=== PATIENT | male | born 1970 | race Caucasian/White ===

== ENCOUNTER 2016-03-01 17:10 | Emergency (ER) | payer BC, OTHER ==
[~2016-03-01] VITALS: Ht 188 cm; Wt 131.0 kg
[~2016-03-01 17:10] MED LIST: ASPI-113 PO; ATOR-54 PO; FLEC100T21 PO; LISI-461 PO; LPR25 PO; METO25TA3 PO; PENI250T2 PO; PRLSR20 PO; vitamin B-6 PO
[2016-03-01 17:16] VITALS: TEMP 36.9; Ht 188 cm; Wt 131.0 kg
[2016-03-01] MEDS ORDERED: METO25TA3 PO (17:47)
[2016-03-01] MEDS ORDERED: METO50TA7 PO (17:47)
[2016-03-01] MEDS ORDERED: OMEP20CA59 PO (17:47)
[2016-03-01] MEDS ORDERED: ASPCH81X PO (17:47)
[2016-03-01] MEDS ORDERED: ZINC50TA3 PO (17:47)
[2016-03-01] MEDS ORDERED: LOSA50TA54 PO (17:47)
[2016-03-01] MEDS ORDERED: DIPHTHERIA/TETANUS/PERTUSSIS 0.5 ML SYR/VIAL IM. ONE (18:15)
--- NOTE | 2016-03-01 18:54 | EMERGENCY ROOM VISIT NOTE ---
History First contact with patient: 17:21 Chief Complaint: OTHER COMPLAINT Stated Complaint: VERIOCUSE VEIN BLEEDING History of Present Illness The patient is a 45 year old male who presents to the Emergency Room via private vehicle with complaints of "varicose vein bleeding". The patient states that he has a history of varicose veins as well as surgical repair and removal of his varicose veins. He states that this past weekend the varicose veins on his left anterior hairston began to puff up and then become scabbed. He states that he was at work today when his sock rubbed over the area and created bleeding. He states that at home the bleeding has stopped but when he removed the sock did remove the scab causing further bleeding. He is placed gauze and a T-shirt on this but continues to bleed. He believes he lost a moderate amount of blood. He denies any numbness or tingling in the leg, he denies any fevers or chills. His tetanus is NOT up-to-date. He does take aspirin but no anticoagulants. Review of Systems A complete 6-point Review of Systems was discussed with the patient, with pertinent positives and negatives listed in the History of Present Illness. All remaining Review of Systems questions can be considered negative unless otherwise specified. Past Medical/Surgical History Medical Problems: (1) s/p appendectomy (2) Fausto's disease Family History Diabetes, heart disease, blood pressure, cancer, colon disease, kidney disease or stones. Social History Smoking Status: Never Smoker Alcohol Use: none Drug Use: none Marital Status: Occupation Status: employed Current/Historical Medications Scheduled Aspirin (Aspirin Chewable), 81 MG PO QAM Atorvastatin (Lipitor), 20 MG PO QPM Losartan Potassium (Cozaar), 50 MG PO QAM Metoprolol Succ (Toprol Xl) (Toprol-Xl), 50 MG PO QAM Metoprolol Succinate (Toprol Xl), 25 MG PO QPM Omeprazole (Prilosec), 20 MG PO QPM Zinc (Zinc), 50 MG PO BID Allergies Coded Allergies: Lisinopril (Verified Adverse Reaction, Mild, cough, 03/01/16) Physical Exam Vital Signs Date Time Temp Pulse Resp B/P Pulse Ox O2 Delivery O2 Flow Rate FiO2 03/01/16 19:02 75 152/72 94 Room Air 03/01/16 17:16 36.9 84 18 136/86 97 Room Air Physical Exam VITAL SIGNS - Vital signs and nursing notes were reviewed. Patient is afebrile , normotensive, not tachycardic and is saturating well on room air at 97%. GENERAL -45-year-old male appearing his stated age who is in no acute distress. Communicates well with provider and answers questions appropriately. SKIN - Without rashes. There is evidence of varicose veins in the left anterior hairston with evidence of break in the integument with active bleeding. The region of which the blood is pouring from his less than 3 mm. The surrounding region is nontender. HEAD - NC/AT. EXTREMITIES - No clubbing or peripheral cyanosis. No pretibial edema present. Patient is vascularly intact in the left lower extremity. +5/5 strength noted in UE/LE bilaterally. Medical Decision & Procedures Medications Administered Medications (Trade) Dose Ordered Sig/Felicia Route Start Time Stop Time Status Last Admin Dose Admin Diphtheria/ Pertussis/Tetanus Vacc (Adacel Inj) 0.5 ml ONCE ONCE IM. 03/01/16 18:15 03/01/16 18:16 DC 03/01/16 18:36 0.5 ML Medical Decision Patient was seen and evaluated as above. After obtaining a thorough history and physical examination it was evident the patient had a slight break in the skin which led to a break in the varicose vein and active bleeding. A quick clot hemostatic pad was applied to the area after thorough cleansing. This was then secured in place with an John wrap. He was observed for greater than 15 minutes and no bleeding was evident through the material. He was instructed upon outpatient management. Benefits versus risk of using this versus suturing were discussed and it was decided to try the quick clot. Patient is to leave this on for 48 hours and then remove and was instructed upon how to do so. He was educated upon worrisome symptoms which to return, had questions answered prior to discharge and was discharged home in good condition. He was given crutches and instructed on use to keep weight off of the leg to decrease pressure on the vein. He is to follow-up with his family doctor in the near future for potential referral to a pain specialist. Patient states this has happened before and he had to have a surgery to remove the vein. He was given his tetanus immunization here. In evaluation treatment this patient the following differential diagnoses were entertained: Bleeding varicose vein. Impression Primary Impression: Bleeding from varicose veins of left lower extremity Departure Information Dispostion Home / Self-Care Condition GOOD Referrals Aretha Serrano M.D. (PCP) Patient Instructions My [facility] Additional Instructions You were seen in the emergency department for bleeding from your left lower leg varicose vein. We have applied a quick clot pad to this area. Please leave this on as well as the John wrap for the next 48 hours. At that point you may remove the John wrap and use a warm washcloth to moisten the quick clot pad. Then you may gently poor warm water on the area and then remove and discard the quick clot pad. If the bleeding would persist at that point these return to the emergency department. Please call your family doctor to schedule follow-up today's visit as soon as possible as well as establish potential referral to a vein specialist. If this region would start to bleed again please return to emergency department for further evaluation. If you begin bleeding from her gums, eyes, nose, rectum or any easy bruising or bleeding please return to the emergency department. Please use the crutches to keep the weight off the leg until the bandage is removed as well as keep the leg elevated as much as possible. Please return to the emergency department with any new/concerning symptoms.
[2016-03-01 19:02] VITALS: BP 152/72; PULSE 75; O2SAT 94
== END 2016-03-01 19:11 | disposition home or self-care (01) ==
LOC: C.EDB 17:12 → C.EDD 19:11
DX: I83.892 Varicose veins of left lower extremity with other complications (principal); E83.01 Wilson's disease; Z79.82 Long term (current) use of aspirin; Z79.899 Other long term (current) drug therapy

== ENCOUNTER 2016-08-17 16:59 | Emergency (ER) | payer OTHER ==
[~2016-08-17] VITALS: Ht 188 cm; Wt 133.0 kg
[~2016-08-17 16:59] MED LIST changes: +ASPCH81X PO; -ASPI-113 PO; -FLEC100T21 PO; -LISI-461 PO; +LOSA50TA54 PO; -LPR25 PO; +METO50TA7 PO; +OMEP20CA59 PO; -PENI250T2 PO; -PRLSR20 PO; +ZINC50TA3 PO; -vitamin B-6 PO
[2016-08-17 17:01] VITALS: TEMP 37.4; Ht 188 cm; Wt 133.0 kg
--- NOTE | 2016-08-17 17:45 | EMERGENCY ROOM VISIT NOTE ---
History Report prepared by Birgit: Daniel English Under the Supervision of: Dr. Darshan Vivar M.D. First contact with patient: 17:19 Chief Complaint: CHEST PAIN Stated Complaint: CHEST PAIN, HX OF A-FIB Nursing Triage Summary: Patient ambulatory to triage with a steady and upright gait, states "I have chest pain. It's probably the same thing that it always is. 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 They told me to come here." Pain "moves" but is mainly left side of sternum. With deep breaths the pain is below the nipple. Sometimes with exertion, the chest just "hurts". Pain started Sunday. Patient walks daily for exercise. History of Present Illness The patient is a 46 year old male with a history of atrial fibrillation, sarcoidosis, Fausto's disease, hyperlipidemia, and hypertension who presents to the Emergency Room with complaints of intermittent left-sided chest pain that started 3 days ago. He says that the pain comes on randomly and sometimes jumps around his chest. The patient says that he has been taking Ibuprofen 600 mg 3 times per day, and with the ibuprofen, his pain is roughly a 2 out of 10 in severity. However, he notes that he missed a dose last night, and the pain became a 4 or 5 out of 10. The patient adds that nothing (except ibuprofen) makes the pain better or worse. He says that he currently has a bit of left- sided chest pain. The patient says that the pain occasionally radiates to his back and left shoulder. He states that he knows when his atrial fibrillation is coming on, and this recent pain is not related to his atrial fibrillation. The patient denies feelings of a rapid heartbeat or skipping beat. He says he has had this pain in the past, and usually makes an appointment with cardiology. The patient adds that one time it was pericarditis, and the other times, there was no major finding. He says that he had an ablation 4 years ago. The patient denies any fevers, cough, or leg pain or swelling. He has no history of blood clots, and he does not take a blood thinner for his atrial fibrillation. The patient says that he takes metoprolol. Source of History: patient Onset: 3 days ago Position: chest (left) Symptom Intensity: ranges from 2/10 to 5/10 Quality: other (pain) Timing: intermittent Modifying Factors (Relieving): ibuprofen Associated Symptoms: + back pain, No fevers, No cough Note: Associated symptoms: Left shoulder pain intermittently. Denies feeling of rapid heartbeat or skipping beat, denies leg pain or swelling. Review of Systems See HPI for pertinent positives & negatives. A total of 10 systems reviewed and were otherwise negative. Past Medical & Surgical Medical Problems: (1) s/p appendectomy (2) Fausto's disease Old medical records were reviewed. Nurse's notes were reviewed and I agree with. Family History Diabetes mellitus FH: heart disease FHx: cancer FHx: gallbladder disease Hypertension Kidney disease Seizures Social History Smoking Status: Never Smoker Alcohol Use: none Drug Use: none Marital Status: Occupation Status: employed Current/Historical Medications Scheduled Aspirin (Aspirin Chewable), 81 MG PO QAM Atorvastatin (Lipitor), 20 MG PO QPM Losartan Potassium (Cozaar), 50 MG PO QAM Metoprolol Succ (Toprol Xl) (Toprol-Xl), 50 MG PO QAM Metoprolol Succinate (Toprol Xl), 25 MG PO QPM Omeprazole (Prilosec), 20 MG PO QPM Zinc (Zinc), 50 MG PO QPM Allergies Coded Allergies: Lisinopril (Verified Adverse Reaction, Mild, cough, 08/17/16) Physical Exam Vital Signs Date Time Temp Pulse Resp B/P (MAP) Pulse Ox O2 Delivery O2 Flow Rate FiO2 08/17/16 19:55 55 18 134/81 97 Room Air 08/17/16 18:57 51 17 130/75 97 Room Air 08/17/16 17:01 99 Room Air 08/17/16 17:01 37.4 57 18 147/68 99 Room Air Physical Exam General: Well developed well nourished non ill appearing middle aged male in no acute distress, breathing comfortably on room air. Normal speech HEENT: Normal cephalic atraumatic. Pupils are equal round and reactive to light. Extraocular movements are intact. Oropharynx is pink with moist mucous membranes. No swelling of the mouth lips or tongue. Neck: Supple with a midline trachea. No meningeal signs or stiffness, no JVD or bruits. No Stridor. Chest: Clear to auscultation bilaterally. No wheezes or rhonchi. No increased work of breathing. Heart: regular rate and rhythm. Abdomen: Soft nontender, nondistended without rebound guarding or rigidity. Extremities: No cyanosis clubbing or edema. No calf tenderness or assymetry Spine/Back. Non tender to palpation. No CVA tenderness Skin: Good turgor without rashes. Neurologic exam: Cranial nerves two through 12 are intact. Motor and sensation are intact and symmetrical throughout. Medical Decision & Procedures ER Provider Diagnostic Interpretation: Radiology results as stated below per my review and radiologist interpretation: SINGLE VIEW CHEST CLINICAL HISTORY: Atypical chest pain. FINDINGS: An AP, portable, upright chest radiograph is compared to study dated 10/24/2011. Correlation will is made with chest CT dated 10/22/2011. The examination is degraded by portable technique and patient rotation. The heart is enlarged. The mediastinal contour is within normal limits and the pulmonary vasculature is noncongested. The lungs and pleural spaces are clear. No pneumothorax is seen. The bony thorax is grossly intact. IMPRESSION: Cardiomegaly with no acute cardiopulmonary abnormality. Electronically signed by: Tha Santizo M.D. 08/17/2016 5:56 PM Dictated Date/Time: 08/17/2016 5:[address] ANGIOGRAM OF THE CHEST CLINICAL HISTORY: Atypical chest pain. COMPARISON STUDY: Chest x-ray dated 08/17/2016. Chest CT dated 10/22/2011. TECHNIQUE: Following the IV administration of 120 cc of Optiray 320, CT angiogram of the chest was performed from the upper abdomen to the thoracic inlet utilizing the pulmonary embolus protocol. Images are reviewed in the axial, sagittal, and coronal planes. 3-D MIPS images are created and assessed. IV contrast was administered without complication. CT DOSE: 801.54 mGy.cm FINDINGS: Thyroid: Imaged portions of the thyroid gland are normal in size and attenuation. Thoracic aorta: The thoracic aorta is normal in caliber and demonstrates standard 3-vessel arch anatomy. No dissection is seen. Pulmonary vasculature: The pulmonary trunk is dilated, measuring 3.5 cm in diameter. This suggests pulmonary artery hypertension. There are no filling defects identified in main, lobar, or segmental pulmonary branches to suggest pulmonary embolus. Heart: The heart is enlarged and there is trace pericardial effusion. Lungs and pleural spaces: No lobar consolidation is identified. There are scattered foci of tree-in-bud nodularity seen in the right upper and right middle lobes. Dependent atelectasis is observed. No pleural effusion is seen. A 6 mm pulmonary nodule is identified in the left lower lobe on image #93. This has minimally increased in size from 10/22/2011. A 6 mm left upper lobe nodule is seen on image #178 is new from 2012. The trachea and central airways are clear. Mediastinum: There is no mediastinal lymphadenopathy. Chely: Clear. Axillae: There is no axillary lymphadenopathy. Upper abdomen: The liver is cirrhotic in morphology with nodularity of the surface contour. The spleen is enlarged, measuring over 17.5 cm in length. There is a small hiatal hernia. Skeletal structures: No lytic or blastic bony lesions are seen. IMPRESSION: 1. There is no evidence of pulmonary embolus in the main, lobar, or segmental pulmonary arteries. 2. Cirrhosis and splenomegaly. 3. Cardiomegaly. 4. There is no lobar consolidation or pleural effusion. 5. There are tree-in-bud airspace opacities seen in the right upper and right middle lobes. This suggests a mild infectious/inflammatory pneumonitis. Clinical correlation will be required. 6. There are 2 indeterminate 6 mm pulmonary nodules in the left lung. One of these is new from 2012 and the other appears minimally increased in size. Follow-up is recommended. See below. Please refer to below summary of Fleischner criteria recommendations for follow-up of incidental CT nodules (Ange Polanco, Guidelines for management of small pulmonary nodules detected on CT scans: A statement from the Fleischner Society, Radiology 237: [phone].) SOLID NODULES Solitary nodule size: <6 mm * low risk patients: no follow-up needed * high risk patients: optional CT at 12 months Solitary nodule size: 6-8 mm * low risk patients: follow-up at 6-12 months, then consider further follow-up at 18-24 months * high risk patients: initial follow-up CT at 6-12 months and then at 18-24 months if no change Solitary nodule size: >8 mm * either low or high risk patients - consider follow-up CT at 3 months, and/or CT-PET, and/or biopsy Multiple nodules size: <6 mm * low risk patients: no routine follow-up * high risk patients: optional CT at 12 months Multiple nodules size: 6-8 mm * low risk patients: follow-up at 3-6 months, then consider further follow-up at 18-24 months * high risk patients: follow-up at 3-6 months, then at 18-24 months if no change Multiple nodules size: >8 mm * low risk patients: follow-up at 3-6 months, then consider further follow-up at 18-24 months * high risk patients: follow-up at 3-6 months, then at 18-24 months if no change Note: newly detected indeterminate nodule in persons 35 years of age or older. * low risk patients: minimal or absent history of smoking and/or other known risk factors * high risk patients: history of smoking or of other known risk factors (e.g. first degree relative with lung cancer, or exposure to asbestos, radon, uranium) * if a nodule up to 8 mm is partly solid or is ground glass further follow-up is required after 24 months to exclude possible slow growing adenocarcinoma (SUNG) SUBSOLID NODULES Solitary pure ground-glass nodule * nodule size <6 mm - no CT follow-up required * nodule size >=6 mm - follow-up CT at 6-12 months, then every 2 years until 5 years Solitary part-solid nodule * nodule size <6 mm - no CT follow-up required * nodule size >=6 mm - follow-up CT at 3-6 months. If unchanged, and solid component remains <6 mm, then annual follow-up for 5 years Multiple subsolid nodules * nodule size <6 mm - follow-up CT at 3-6 months, consider further follow-up at 2 and 4 years if stable * nodule size >=6 mm - follow-up CT at 3-6 months, subsequent management based on the most suspicious nodule(s) Electronically signed by: Tha Santizo M.D. 08/17/2016 7:20 PM Dictated Date/Time: 08/17/2016 7:12 PM Laboratory Results 08/17/16 17:58 Red Blood Count 4.91, Mean Corpuscular Volume 81.5, Mean Corpuscular Hemoglobin 25.7, Mean Corpuscular Hemoglobin Concent 31.5, Mean Platelet Volume 9.4, Neutrophils (%) (Auto) 57.2, Lymphocytes (%) (Auto) 26.4, Monocytes (%) (Auto) 10.5, Eosinophils (%) (Auto) 5.4, Basophils (%) (Auto) 0.3, Neutrophils # (Auto ) 3.28, Lymphocytes # (Auto) 1.51, Monocytes # (Auto) 0.60, Eosinophils # (Auto ) 0.31, Basophils # (Auto) 0.02 08/17/16 17:58 Test 08/17/16 17:58 08/17/16 18:02 White Blood Count 5.73 K/uL (4.8-10.8) Red Blood Count 4.91 M/uL (4.7-6.1) Hemoglobin 12.6 g/dL (14.0-18.0) Hematocrit 40.0 % (42-52) Mean Corpuscular Volume 81.5 fL (80-100) Mean Corpuscular Hemoglobin 25.7 pg (25-34) Mean Corpuscular Hemoglobin Concent 31.5 g/dl (32-36) Platelet Count 142 K/uL (130-400) Mean Platelet Volume 9.4 fL (7.4-10.4) Neutrophils (%) (Auto) 57.2 % Lymphocytes (%) (Auto) 26.4 % Monocytes (%) (Auto) 10.5 % Eosinophils (%) (Auto) 5.4 % Basophils (%) (Auto) 0.3 % Neutrophils # (Auto) 3.28 K/uL (1.4-6.5) Lymphocytes # (Auto) 1.51 K/uL (1.2-3.4) Monocytes # (Auto) 0.60 K/uL (0.11-0.59) Eosinophils # (Auto) 0.31 K/uL (0-0.5) Basophils # (Auto) 0.02 K/uL (0-0.2) RDW Standard Deviation 48.7 fL (36.4-46.3) RDW Coefficient of Variation 16.2 % (11.5-14.5) Immature Granulocyte % (Auto) 0.2 % Immature Granulocyte # (Auto) 0.01 K/uL (0.00-0.02) Anion Gap 6.0 mmol/L (3-11) Est Creatinine Clear Calc Drug Dose 113.9 ml/min Estimated GFR () 84.7 Estimated GFR (Non- 73.1 BUN/Creatinine Ratio 15.0 (10-20) Calcium Level 8.6 mg/dl (8.5-10.1) Total Bilirubin 1.7 mg/dl (0.2-1) Direct Bilirubin 0.4 mg/dl (0-0.2) Aspartate Amino Transf (AST/SGOT) 29 U/L (15-37) Alanine Aminotransferase (ALT/SGPT) 48 U/L (12-78) Alkaline Phosphatase 207 U/L (45-117) Total Protein 7.2 gm/dl (6.4-8.2) Albumin 3.5 gm/dl (3.4-5.0) Lipase 105 U/L (73-393) Bedside D-Dimer > 450 ng/mlFEU (0-450) Bedside Troponin I < 0.030 ng/ml (0-0.045) Laboratory studies as stated above per my review. ECG Indication: chest pain Rate (beats per minute): 56 Rhythm: sinus bradycardia Findings: no acute ischemic change, no ectopy Change: no significant change (from Jan 21 2012) ED Course 1735: Past medical records reviewed. The patient was evaluated in room A9B, and a complete history and physical examination were performed. 1906: The patient is at CT. 1935: Upon reevaluation, the patient is resting comfortably. I discussed the results and treatment plan with him. He verbalized agreement of the treatment plan. The patient was discharged home. Medical Decision Differentials include, but are not limited to; acute coronary syndrome, arrhythmia, PE, electrolyte or metabolic abnormality. Medication Reconciliation: I attest that I have personally reviewed the patient' s current medication list. Blood pressure Screening: Patient was found to have an elevated blood pressure and was referred to their primary doctor for recheck and further treatment. This patient comes in as described above. he's had left sided chest pain that's been going on for several days. It is pleuritic and her atypical for cardiac disease. He no cough or infectious type symptoms. EKG does not suggest acute coronary syndrome or arrhythmia. His troponin is not elevated. D-dimer was elevated and in light of this, we did chest CT there is no evidence of PE there are some findings that suggest possible inflammatory process. I think this is likely his sarcoidosis and clinically, he has no evidence of suggest infection. The patient has remained stable. This may be more musculoskeletal. He is going to be discharged home. He should return if: increasing pain, shortness of breath, worsening of symptoms, fever or chills, any new problems or concerns. The patient and his are happy with plan and he was discharged to home. Impression Primary Impression: Left sided chest pain Scribe Attestation The scribe's documentation has been prepared under my direction and personally reviewed by me in its entirety. I confirm that the note above accurately reflects all work, treatment, procedures, and medical decision making performed by me. Departure Information Dispostion Home / Self-Care Referrals Nader Chappell M.D.([facility]) (PCP) Forms HOME CARE DOCUMENTATION FORM, IMPORTANT VISIT INFORMATION Patient Instructions My [facility] Additional Instructions On your CT scan a new 6mm pulmonary nodule in the left lung was seen (in addition to a previous pulmonary nodule). It is recommended to follow this up in the next 3 months with repeat imaging. Please discuss this with your primary care provider. Ibuprofen(Motrin, Advil) may be used for fever or pain. Use 600mg every six hours as needed. Take with food. Avoid using more than 2400mg in a 24 hour period. Do not use 2400mg per day for more than three consecutive days without physician direction. Prolonged inappropriate use can lead to stomach upset or ulcers. (AND/OR) Rest and drink plenty of fluids as tolerated. Continue current medications. Avoid strenuous activities and anything that worsens your pain. Resume normal activities once your symptoms resolve. Return to the ER immediately for worsening or persistent chest pain, abdominal pain, vomiting, fevers, chest pains, difficulty breathing, worsening of your condition, or as needed. Follow up with your primary physician in 2-3 days for a recheck of your current condition.
--- NOTE | 2016-08-17 17:55 | EMERGENCY ROOM VISIT NOTE ---
History First contact with patient: 17:19 Chief Complaint: CHEST PAIN Stated Complaint: CHEST PAIN, HX OF A-FIB Nursing Triage Summary: Patient ambulatory to triage with a steady and upright gait, states "I have chest pain. It's probably the same thing that it always is. I wasn't able to see my family development specialist today. They told me to come here." Pain "moves" but is mainly left side of sternum. With deep breaths the pain is below the nipple. Sometimes with exertion, the chest just "hurts". Pain started Sunday. Patient walks daily for exercise. History of Present Illness The patient is a 46 year old male with a history of sarcoidosis, Fausto's disease, hypertension, hyperlipidemia, and atrial fibrillation who presents to the Emergency Room with complaints of pain. The patient states that he has had intermittent chest pain since Sunday morning over the left side of his chest. The pain is usually over the left side of his sternum moves throughout his chest , and can be located below the left breast. He also states that the pain can radiate to his back between his shoulder blades and also to his left shoulder. He states that the location of the pain often moves with breathing, movement, swallowing, or even at rest. The patient has been taking ibuprofen 600 mg for discomfort, and describes it as a 1-2 out of 10 pain. Last night he did not take ibuprofen and said it became a 4-5 out of 10 pain. The patient denies any shortness of breath but states that his pain is worsened with taking deep breaths. The patient denies any fevers, chills, abdominal pain, nausea, vomiting, constipation, diarrhea, headache, or any other acute symptoms. The patient states that he usually feels when his A. fib is coming on, but has not had any episodes since at least last week. He is currently not on any anticoagulation as he had an ablation 4 years ago but still does have acute episodes of atrial fibrillation. Review of Systems See HPI for pertinent positives and negatives. A total of ten systems were reviewed and were otherwise negative. Past Medical/Surgical History Medical Problems: (1) s/p appendectomy (2) Fausto's disease Social History Smoking Status: Never Smoker Alcohol Use: none Drug Use: none Marital Status: Occupation Status: employed Current/Historical Medications Scheduled Aspirin (Aspirin Chewable), 81 MG PO QAM Atorvastatin (Lipitor), 20 MG PO QPM Losartan Potassium (Cozaar), 50 MG PO QAM Metoprolol Succ (Toprol Xl) (Toprol-Xl), 50 MG PO QAM Metoprolol Succinate (Toprol Xl), 25 MG PO QPM Omeprazole (Prilosec), 20 MG PO QPM Zinc (Zinc), 50 MG PO QPM Allergies Coded Allergies: Lisinopril (Verified Adverse Reaction, Mild, cough, 08/17/16) Physical Exam Vital Signs Date Time Temp Pulse Resp B/P (MAP) Pulse Ox O2 Delivery O2 Flow Rate FiO2 08/17/16 18:57 51 17 130/75 97 Room Air 08/17/16 17:01 99 Room Air 08/17/16 17:01 37.4 57 18 147/68 99 Room Air Physical Exam GENERAL: Awake, alert, well-appearing, in no distress HENT: Normocephalic, atraumatic. Oropharynx unremarkable. EYES: Normal conjunctiva. Sclera non-icteric. NECK: Supple. No nuchal rigidity. RESPIRATORY: Clear to auscultation. CARDIAC: Regular rate, normal rhythm. Extremities warm and well perfused. Pulses equal. ABDOMEN: Soft, non-distended. No tenderness to palpation. No rebound or guarding. No masses. RECTAL: Deferred. MUSCULOSKELETAL: Chest examination reveals no tenderness. LOWER EXTREMITIES: Calves are equal size bilaterally and non-tender. No edema. No discoloration. NEURO: Normal sensorium. No sensory or motor deficits noted. SKIN: No rash or jaundice noted. Medical Decision & Procedures Laboratory Results 08/17/16 17:58 Red Blood Count 4.91, Mean Corpuscular Volume 81.5, Mean Corpuscular Hemoglobin 25.7, Mean Corpuscular Hemoglobin Concent 31.5, Mean Platelet Volume 9.4, Neutrophils (%) (Auto) 57.2, Lymphocytes (%) (Auto) 26.4, Monocytes (%) (Auto) 10.5, Eosinophils (%) (Auto) 5.4, Basophils (%) (Auto) 0.3, Neutrophils # (Auto ) 3.28, Lymphocytes # (Auto) 1.51, Monocytes # (Auto) 0.60, Eosinophils # (Auto ) 0.31, Basophils # (Auto) 0.02 7/13/17 17:58 Test 08/17/16 17:58 08/17/16 18:02 White Blood Count 5.73 K/uL (4.8-10.8) Red Blood Count 4.91 M/uL (4.7-6.1) Hemoglobin 12.6 g/dL (14.0-18.0) Hematocrit 40.0 % (42-52) Mean Corpuscular Volume 81.5 fL (80-100) Mean Corpuscular Hemoglobin 25.7 pg (25-34) Mean Corpuscular Hemoglobin Concent 31.5 g/dl (32-36) Platelet Count 142 K/uL (130-400) Mean Platelet Volume 9.4 fL (7.4-10.4) Neutrophils (%) (Auto) 57.2 % Lymphocytes (%) (Auto) 26.4 % Monocytes (%) (Auto) 10.5 % Eosinophils (%) (Auto) 5.4 % Basophils (%) (Auto) 0.3 % Neutrophils # (Auto) 3.28 K/uL (1.4-6.5) Lymphocytes # (Auto) 1.51 K/uL (1.2-3.4) Monocytes # (Auto) 0.60 K/uL (0.11-0.59) Eosinophils # (Auto) 0.31 K/uL (0-0.5) Basophils # (Auto) 0.02 K/uL (0-0.2) RDW Standard Deviation 48.7 fL (36.4-46.3) RDW Coefficient of Variation 16.2 % (11.5-14.5) Immature Granulocyte % (Auto) 0.2 % Immature Granulocyte # (Auto) 0.01 K/uL (0.00-0.02) Anion Gap 6.0 mmol/L (3-11) Est Creatinine Clear Calc Drug Dose 113.9 ml/min Estimated GFR () 84.7 Estimated GFR (Non- 73.1 BUN/Creatinine Ratio 15.0 (10-20) Calcium Level 8.6 mg/dl (8.5-10.1) Total Bilirubin 1.7 mg/dl (0.2-1) Direct Bilirubin 0.4 mg/dl (0-0.2) Aspartate Amino Transf (AST/SGOT) 29 U/L (15-37) Alanine Aminotransferase (ALT/SGPT) 48 U/L (12-78) Alkaline Phosphatase 207 U/L (45-117) Total Protein 7.2 gm/dl (6.4-8.2) Albumin 3.5 gm/dl (3.4-5.0) Lipase 105 U/L (73-393) Bedside D-Dimer > 450 ng/mlFEU (0-450) Bedside Troponin I < 0.030 ng/ml (0-0.045) Medical Decision Patient is a 46 year old male that presents with a 4 day history of chest pain Etiologies such as cardiac ischemia, aortic dissection, pulmonary embolism, pneumonia, pneumothorax, musculoskeletal, infections, gastrointestinal, as well as others were entertained. 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 - Only finding on lab wasn't elevated alkaline phosphatase most likely secondary to Fausto's disease - Discussed the findings with the patient who is agreeable to be discharged home with follow-up with his primary care provider Departure Information Dispostion Home / Self-Care Condition GOOD Referrals Nader Chappell M.D.([facility]) (PCP) Patient Instructions My [facility] Additional Instructions On your CT scan a new 6mm pulmonary nodule in the left lung was seen (in addition to a previous pulmonary nodule). It is recommended to follow this up in the next 3 months with repeat imaging. Please discuss this with your primary care provider. Ibuprofen(Motrin, Advil) may be used for fever or pain. Use 600mg every six hours as needed. Take with food. Avoid using more than 2400mg in a 24 hour period. Do not use 2400mg per day for more than three consecutive days without physician direction. Prolonged inappropriate use can lead to stomach upset or ulcers. (AND/OR) Rest and drink plenty of fluids as tolerated. Continue current medications. Avoid strenuous activities and anything that worsens your pain. Resume normal activities once your symptoms resolve. Return to the ER immediately for worsening or persistent chest pain, abdominal pain, vomiting, fevers, chest pains, difficulty breathing, worsening of your condition, or as needed. Follow up with your primary physician in 2-3 days for a recheck of your current condition.
--- NOTE | 2016-08-17 17:57 | DIAGNOSTIC IMAGING REPORT ---
SINGLE VIEW CHEST CLINICAL HISTORY: Atypical chest pain. FINDINGS: An AP, portable, upright chest radiograph is compared to study dated 10/24/2011. Correlation will is made with chest CT dated 10/22/2011. The examination is degraded by portable technique and patient rotation. The heart is enlarged. The mediastinal contour is within normal limits and the pulmonary vasculature is noncongested. The lungs and pleural spaces are clear. No pneumothorax is seen. The bony thorax is grossly intact. IMPRESSION: Cardiomegaly with no acute cardiopulmonary abnormality. Electronically signed by: Tha Santizo M.D. 08/17/2016 5:56 PM Dictated Date/Time: 08/17/2016 5:55 PM
[2016-08-17 18:21] LABS: POINT OF CARE TROPONIN I < 0.030 ng/ml (0-0.045)
[2016-08-17 18:25] LABS: BASO % 0.3 %; BASO ABS # 0.02 K/uL (0-0.2); COMPLETE YES; EOS % 5.4 %; IG% 0.2 %; LYMPH % 26.4 %; LYMPH ABS # 1.51 K/uL (1.2-3.4); MEAN CELL VOLUME 81.5 fL (80-100); MEAN CORPUSCULAR HEMOGLOBIN 25.7 pg (25-34); MEAN CORPUSCULAR HGB CONC 31.5 g/dl (32-36); MEAN PLATELET VOLUME 9.4 fL (7.4-10.4); MONO % 10.5 %; NEUT % 57.2 %; PLATELET COUNT 142 K/uL (130-400); RED BLOOD COUNT 4.91 M/uL (4.7-6.1); WHITE BLOOD COUNT 5.73 K/uL (4.8-10.8)
[2016-08-17] MEDS ORDERED: OPTIRAY 320 IV PRN (18:30)
[2016-08-17 18:43] LABS: CALCIUM 8.6 mg/dl (8.5-10.1); CREATININE 1.2 mg/dl (0.60-1.40)
--- NOTE | 2016-08-17 19:21 | DIAGNOSTIC IMAGING REPORT ---
CT ANGIOGRAM OF THE CHEST CLINICAL HISTORY: Atypical chest pain. COMPARISON STUDY: Chest x-ray dated 08/17/2016. Chest CT dated 10/22/2011. TECHNIQUE: Following the IV administration of 120 cc of Optiray 320, CT angiogram of the chest was performed from the upper abdomen to the thoracic inlet utilizing the pulmonary embolus protocol. Images are reviewed in the axial, sagittal, and coronal planes. 3-D MIPS images are created and assessed. IV contrast was administered without complication. CT DOSE: 801.54 mGy.cm FINDINGS: Thyroid: Imaged portions of the thyroid gland are normal in size and attenuation. Thoracic aorta: The thoracic aorta is normal in caliber and demonstrates standard 3-vessel arch anatomy. No dissection is seen. Pulmonary vasculature: The pulmonary trunk is dilated, measuring 3.5 cm in diameter. This suggests pulmonary artery hypertension. There are no filling defects identified in main, lobar, or segmental pulmonary branches to suggest pulmonary embolus. Heart: The heart is enlarged and there is trace pericardial effusion. Lungs and pleural spaces: No lobar consolidation is identified. There are scattered foci of tree-in-bud nodularity seen in the right upper and right middle lobes. Dependent atelectasis is observed. No pleural effusion is seen. A 6 mm pulmonary nodule is identified in the left lower lobe on image #93. This has minimally increased in size from 10/22/2011. A 6 mm left upper lobe nodule is seen on image #178 is new from 2012. The trachea and central airways are clear. Mediastinum: There is no mediastinal lymphadenopathy. [place]: Clear. Axillae: There is no axillary lymphadenopathy. Upper abdomen: The liver is cirrhotic in morphology with nodularity of the surface contour. The spleen is enlarged, measuring over 17.5 cm in length. There is a small hiatal hernia. Skeletal structures: No lytic or blastic bony lesions are seen. IMPRESSION: 1. There is no evidence of pulmonary embolus in the main, lobar, or segmental pulmonary arteries. 2. Cirrhosis and splenomegaly. 3. Cardiomegaly. 4. There is no lobar consolidation or pleural effusion. 5. There are tree-in-bud airspace opacities seen in the right upper and right middle lobes. This suggests a mild infectious/inflammatory pneumonitis. Clinical correlation will be required. 6. There are 2 indeterminate 6 mm pulmonary nodules in the left lung. One of these is new from 2012 and the other appears minimally increased in size. Follow-up is recommended. See below. Please refer to below summary of Fleischner criteria recommendations for follow-up of incidental CT nodules (Ange Polanco, Guidelines for management of small pulmonary nodules detected on CT scans: A statement from the Fleischner Society, Radiology 237: [id number].) SOLID NODULES Solitary nodule size: <6 mm * low risk patients: no follow-up needed * high risk patients: optional CT at 12 months Solitary nodule size: 6-8 mm * low risk patients: follow-up at 6-12 months, then consider further follow-up at 18-24 months * high risk patients: initial follow-up CT at 6-12 months and then at 18-24 months if no change Solitary nodule size: >8 mm * either low or high risk patients - consider follow-up CT at 3 months, and/or CT-PET, and/or biopsy Multiple nodules size: <6 mm * low risk patients: no routine follow-up * high risk patients: optional CT at 12 months Multiple nodules size: 6-8 mm * low risk patients: follow-up at 3-6 months, then consider further follow-up at 18-24 months * high risk patients: follow-up at 3-6 months, then at 18-24 months if no change Multiple nodules size: >8 mm * low risk patients: follow-up at 3-6 months, then consider further follow-up at 18-24 months * high risk patients: follow-up at 3-6 months, then at 18-24 months if no change Note: newly detected indeterminate nodule in persons 35 years of age or older. * low risk patients: minimal or absent history of smoking and/or other known risk factors * high risk patients: history of smoking or of other known risk factors (e.g. first degree relative with lung cancer, or exposure to asbestos, radon, uranium) * if a nodule up to 8 mm is partly solid or is ground glass further follow-up is required after 24 months to exclude possible slow growing adenocarcinoma (SUNG) SUBSOLID NODULES Solitary pure ground-glass nodule * nodule size <6 mm - no CT follow-up required * nodule size >=6 mm - follow-up CT at 6-12 months, then every 2 years until 5 years Solitary part-solid nodule * nodule size <6 mm - no CT follow-up required * nodule size >=6 mm - follow-up CT at 3-6 months. If unchanged, and solid component remains <6 mm, then annual follow-up for 5 years Multiple subsolid nodules * nodule size <6 mm - follow-up CT at 3-6 months, consider further follow-up at 2 and 4 years if stable * nodule size >=6 mm - follow-up CT at 3-6 months, subsequent management based on the most suspicious nodule(s) Electronically signed by: Tha Santizo M.D. 08/17/2016 7:20 PM Dictated Date/Time: 08/17/2016 7:12 PM
[2016-08-17 19:55] VITALS: BP 134/81; PULSE 55; O2SAT 97
== END 2016-08-17 19:56 | disposition home or self-care (01) ==
LOC: C.EDB 17:00 → C.EDA 19:56
DX: R07.9 Chest pain, unspecified (principal); Z79.82 Long term (current) use of aspirin; E83.01 Wilson's disease